=== PATIENT | male | born 1945 | race African-American/Black ===

== ENCOUNTER → 2021-09-05 | Outpatient (CLI) | payer MEDICARE, OTHER | END | disposition home or self-care (01) | LOC: RAD 11:44 | PROVIDERS: ATTEND Specialist | DX: R06.02 Shortness of breath (principal); I51.7 Cardiomegaly; I50.9 Heart failure, unspecified; R09.89 Other specified symptoms and signs involving the circulatory and respiratory systems; I87.8 Other specified disorders of veins | CPT/HCPCS: 71046 ==